=== PATIENT | female | born 1990 | race Two or more races ===

== ENCOUNTER 2021-10-29 05:24 | Emergency (ER) | payer BC, OTHER ==
[~2021-10-29] VITALS: Ht 167.6 cm; Wt 172.0 kg
[~2021-10-29 05:24] MED LIST: NAPROSYN500 MG PO
[2021-10-29] MEDS ORDERED: FLUOXETINE HCL40 MG PO (05:43)
[2021-10-29] MEDS ORDERED: METFORMIN HCL750 MG PO (05:44)
[2021-10-29] MEDS ORDERED: LEVOTHYROXINE88 MC1 PO (05:44)
[2021-10-29] MEDS ORDERED: VICTOZA 2-0.6 MG/0.1 SUB-Q (05:45)
[2021-10-29] MEDS ORDERED: ALOGLIPTIN25 MG PO (05:45)
[2021-10-29] MEDS ORDERED: JARDIANCE25 MG PO (05:46)
[2021-10-29] MEDS ORDERED: EZETIMIBE10 MG PO (05:46)
[2021-10-29] MEDS ORDERED: OMEPRAZOLE20 MG PO (05:47)
[2021-10-29] MEDS ORDERED: VYVANSE50 MG PO (05:48)
== END 2021-10-29 06:20 | disposition home or self-care (01) ==
LOC: ED 05:24
DX: S90.31XA Contusion of right foot, initial encounter (principal); S90.01XA Contusion of right ankle, initial encounter; E11.9 Type 2 diabetes mellitus without complications; Z79.899 Other long term (current) drug therapy; Z79.84 Long term (current) use of oral hypoglycemic drugs; W01.0XXA Fall on same level from slipping, tripping and stumbling without subsequent striking against object, initial encounter; X50.1XXA Overexertion from prolonged static or awkward postures, initial encounter
CPT/HCPCS: 73630; 99283-25

== ENCOUNTER 2022-05-01 05:30 | Day surgery (SDC) | payer OTHER ==
[~2022-05-01] VITALS: Ht 167.6 cm; Wt 165.9 kg
--- NOTE | ~2022-05-01 | OR ---
[facility] [address], [place] [address] Draft DATE OF OPERATION: 05/01/2022 SURGEON: Randy Ren MD PREOPERATIVE DIAGNOSES: Recurring acute sinusitis and chronic sinusitis, deviated nasal septum. POSTOPERATIVE DIAGNOSES: Recurring acute sinusitis and chronic sinusitis, deviated nasal septum. PROCEDURES: 1. Bilateral endoscopic frontal ethmoidectomy, 07349-4 0. 2. Nasal septoplasty, 65243. 3. Bilateral endoscopic sphenoidotomy, 82354-69. 4. Bilateral endoscopic maxillary antrostomies, 03516-89. INDICATIONS: This 31-year-old female who also has diabetes diagnosis, has recurring acute sinus infections, also chronic sinus infections characterized by pain, congestion, purulent drainage off and on, has been treated with antibiotics, but also has headaches referable to all of the usual pain patterns. A CT scan showed some thickening in the maxillary and ethmoid sinuses and spur which is on the left side protruded in the lateral wall also helped to impinge on the ostiomeatal units. Because of the patient's medical condition and with the recurring acute sinus infections with the demonstrated abnormalities in the sinuses configuration it was felt that this surgery would greatly improve her quality of life. PROCEDURE IN DETAIL: The patient was placed in the supine position, had an orotracheal intubation was placed under general anesthesia. The right side was approached first injecting the middle turbinates anteriorly with a couple of mL of 1% lidocaine with 1:200,000 epinephrine. Endoscopically photographs were obtained, preop, intraop and postoperatively. It was noted that the mucosa was diseased on the anterior edge of the turbinate with a narrow ostiomeatal unit. The anteroinferior portion of middle turbinate was trimmed away with a through cut ethmoid punch, Kerrison forceps and a microdebrider. The sickle knife was used to incise the uncinate process and then that was removed again with Kerrison forceps and a through cut punch. Maxillary ostium was extremely tight with chronic edema, which played into the diagnosis with the patient. This was dilated with the ostium and then the posterior fontanelle removed with the through cut ethmoid punch and a backbiter as well, used to remove more that anterior portion making sure PATIENT NAME: MELVI ARMSTRONG OPERATIVE REPORT DATE OF : [birth year] REPORT #: [id number] PHYSICIAN: RANDY REN MD PCP: EVERETT AVELAR REPORT IS CONFIDENTIAL AND NOT TO BE RELEASED WITHOUT AUTHORIZATION [facility] [address], [place] [address] Draft that it drained adequately. Complete ethmoidectomy was then done using the curette. Opened up the ethmoid bulla then going from air cell to air cell through the lamina of the middle turbinate and the posterior ethmoids up against the rostrum of the sphenoid. A transethmoid sphenoidotomy was performed with Kerrison forceps. After it was opened up, this was used to remove the sphenoid ridge and once the sealing of the sphenoid sinus could be visualized then and a very wide sphenoidotomy was performed. Switching to a 70 degree scope, the base of skull was dissected out, removing the ethmoid septations precisely without trying to strip any mucosa. The frontal sinus likewise was closed off the nasofrontal duct and that drainage up through the ethmoids was closed with swollen mucosa. This was resected with the microdebrider with a curved blade and the Kerrison frontal sinus punch and various frontal sinus instruments until it was very widely open. Cleaning up all the little shards of bone and ragged mucosa. A piece of nasal pore with some mupirocin ointment was placed into that to help prevent lateralization of the middle turbinates remnant. The septal spur and deviated septum were treated endoscopically. Injecting some lidocaine right over the spur and end of the sickle knife a 15 blade was used to incise the mucosa with the [place] dissection tool using a sharper and it was dissected off the spur superiorly and inferiorly and posteriorly. Then, a chisel was used to cut that spur which was mostly bone, removing it entirely submucosally. Some of the ragged mucosa was trimmed and then the left ethmoidectomy and maxillary sinus surgery was performed. The left side was done pretty much the same as the right after injecting a few mL on that turbinates. The anterior inferior portion of middle turbinate was trimmed away, opening up the middle meatus wider. The uncinate process was incised and then removed with a backbiting forceps and a through cut ethmoid punch to open up the maxillary ostium widely. A complete ethmoidectomy performed same as the right side. Again, a transethmoid sphenoidotomy performed until the rostrum of the sphenoid could be encountered and then opening up the sphenoid sinus. The roof of the sphenoid sinus was ascertained before removing that rostrum going up to the base of skull and switching to a 70 degree scope. The procedure was finished dissecting out the base of skull opening up the frontal sinus again, which likewise closed off with chronic edema, but a very wide frontal sinusotomy was possible in excess of a cm wide opening. Estimated blood loss was about 60 mL. The patient had some NasoPore placed on both sides with mupirocin ointment. She was awakened gradually, sent to recovery room. There were no complications. The procedure proceeded rapidly and expeditiously. No complications. Randy Ren MD SLN/MODL PATIENT NAME: MELVI ARMSTRONG OPERATIVE REPORT DATE OF : [birth year] REPORT #: [id number] PHYSICIAN: RANDY REN MD PCP: EVERETT AVELAR REPORT IS CONFIDENTIAL AND NOT TO BE RELEASED WITHOUT AUTHORIZATION [facility] [address], [place] [address] Draft /[id number] Copies: ~ PATIENT NAME: MELVI ARMSTRONG OPERATIVE REPORT DATE OF : [birth year] REPORT #: [id number] PHYSICIAN: RANDY REN MD PCP: EVERETT AVELAR REPORT IS CONFIDENTIAL AND NOT TO BE RELEASED WITHOUT AUTHORIZATION
[~2022-05-01 05:30] MED LIST changes: +ALOGLIPTIN25 MG PO; +CLARITIN10 MG PO; +EZETIMIBE10 MG PO; +FLUOXETINE HCL40 MG PO; +JARDIANCE25 MG PO; +LEVOTHYROXINE88 MC1 PO; +METFORMIN HCL750 MG PO; +OMEPRAZOLE20 MG PO; +VICTOZA 2-0.6 MG/0.1 SUB-Q; +VYVANSE50 MG PO
--- NOTE | 2022-05-01 07:27 | NUR ---
FIRST IV INFUSED 2ND LITER HUNG AT [facility]. ENERGY CONTROL OFFICER NOTIFIED.
--- NOTE | 2022-05-01 09:41 | NUR ---
05/01/22 0941 Sheets,Laura 0930 PT ARRIVED TO PACU ON 10L VIA MASK, JAW THURST USED TO MAINTAIN AIRWAY. PT NONAROUSBALE. 0933 HOB INCREASED AND RESP EVEN AND UNLABORED. JAW THRUST NO LONGER NEEDED TO MAINTAIN AIRWAY.
--- NOTE | 2022-05-01 10:26 | NUR ---
PT ALERT, ORIENTED AND PLEASANT. PT SEEMS A BIT ANXIOUS. GAVE ENCOURAGMENT AND HAD PRAYER WITH PT. HER B.FRIEND WILL BE HERE [place]. WILL FOLLOW
--- NOTE | 2022-05-01 10:31 | NUR ---
RETURNED NO FAMILY PRESENT. KLEENEX AND WATER GIVEN.
--- NOTE | 2022-05-01 11:12 | NUR ---
ASSISTED TO BR. SHAJI LAWRENCE. VOIDS QS. DENIES ANY PROBLEMS.
--- NOTE | 2022-05-01 12:02 | NUR ---
WHEN UP TO BR O2 SAT 95% ON ROOM AIR. SUPPLIES GIVEN TO CHANGE DRIP PAD UNDER NOSE. SHOWN HOW STATES OK. SCRIPT WAS CALLED INTO [employer].
== END 2022-05-01 11:50 | disposition home or self-care (01) ==
LOC: DS 05:30
PROVIDERS: ATTEND Otolaryngology
PROC: 09TU8ZZ Resection of Right Ethmoid Sinus, Via Natural or Artificial Opening Endoscopic (ICD-10-PCS; 2022-05-01)
PROC: 09SM4ZZ Reposition Nasal Septum, Percutaneous Endoscopic Approach (ICD-10-PCS; 2022-05-01)
PROC: 09CX8ZZ Extirpation of Matter from Left Sphenoid Sinus, Via Natural or Artificial Opening Endoscopic (ICD-10-PCS; 2022-05-01)
PROC: 09CW8ZZ Extirpation of Matter from Right Sphenoid Sinus, Via Natural or Artificial Opening Endoscopic (ICD-10-PCS; 2022-05-01)
PROC: 099R8ZZ Drainage of Left Maxillary Sinus, Via Natural or Artificial Opening Endoscopic (ICD-10-PCS; 2022-05-01)
PROC: 099Q8ZZ Drainage of Right Maxillary Sinus, Via Natural or Artificial Opening Endoscopic (ICD-10-PCS; 2022-05-01)
PROC: 09TV8ZZ Resection of Left Ethmoid Sinus, Via Natural or Artificial Opening Endoscopic (ICD-10-PCS; principal; 2022-05-01 07:30)
DX: J01.91 Acute recurrent sinusitis, unspecified (principal); J32.9 Chronic sinusitis, unspecified; J34.2 Deviated nasal septum; E11.9 Type 2 diabetes mellitus without complications; G47.33 Obstructive sleep apnea (adult) (pediatric); K21.9 Gastro-esophageal reflux disease without esophagitis; E03.9 Hypothyroidism, unspecified; M79.7 Fibromyalgia; J45.909 Unspecified asthma, uncomplicated; Z79.84 Long term (current) use of oral hypoglycemic drugs; Z79.85 Long-term (current) use of injectable non-insulin antidiabetic drugs
CPT/HCPCS: J0131; J0330; J1100; J1885; J2250; J2405; J2704; J2765; J3010; J7121